=== PATIENT | male | born 2000 | race Hispanic/Latino ===

== ENCOUNTER 2020-08-30 21:25 | Emergency (ER) | payer SELFPAY ==
[2020-08-30 22:22] LABS: HEMATOCRIT 47.3 % (39.0-50.0); HEMOGLOBIN 15.7 g/dl (14.0-18.0); IMMATURE GRANULOCYTES 0.2 % (0.0-5.0); MEAN CELL VOLUME 91.5 fL CALC (80.0-100.0); MEAN CORPUSCULAR HGB 30.4 pG CALC (26.0-32.0); MEAN CORPUSCULAR HGB CONC 33.2 g/dL CAL (32.0-36.0); NEUT# 7.74 thou/uL (1.82-7.42); RED BLOOD COUNT 5.17 mill/uL (4.70-6.10); RED CELL DISTRI WIDTH 12.1 % (11.5-15.5)
[2020-08-30 22:42] LABS: ACT PARTIAL THROMBO TIME 25.4 SECONDS (20.0-32.5); INTERNATIONAL NORMALIZED RATIO 1.2 RATIO (0.7-1.3); PROTHROMBIN TIME 12.3 SECONDS (9.0-12.5)
[2020-08-30 22:43] LABS: ALBUMIN 4.8 g/dL (3.2-5.0); ALKALINE PHOSPHATASE 119 u/l (38-126); ANION GAP 12 (6-22 (CALC)); BILIRUBIN, TOTAL 0.6 mg/dL (0.0-1.4); BUN 11 mg/dL (9-20); BUN/CREATININE RATIO 10 (12-20 (CALC)); CARBON DIOXIDE 28 mmol/l (22-30); CHLORIDE 101 mmol/l (95-108); CREATININE 1.2 mg/dL (0.7-1.3); GFR > 60 ML/MIN (>=60 (CALC)); GFR FOR AFR.AMER. > 60 ML/MIN (>=60 (CALC)); POTASSIUM 3.7 mmol/l (3.5-5.1); SGOT/AST 34 u/l (17-59); SODIUM 136 mmol/l (137-146); TOTAL PROTEIN 8.3 g/dL (6.3-8.2)
[2020-08-30 22:49] LABS: D-DIMER 0.26 mg/L (0.19-0.60)
[2020-08-30 22:53] LABS: MYOGLOBIN 47 ng/mL (0 - 121)
[2020-08-31 00:12] VITALS: BP 136/74
== END 2020-08-31 00:28 | disposition home or self-care (01) | DRG 313 ==
LOC: ED 21:25
PROVIDERS: Family Medicine
DX: R07.89 Other chest pain (principal); R00.2 Palpitations